=== PATIENT | female | born 1995 | race Hispanic/Latino ===

== ENCOUNTER 2020-08-08 22:00 | Emergency (ER) | payer SELFPAY ==
--- OUTSIDE RECORDS SUMMARY | 2020-08-08 22:02 | XMS REPORT | Continuity of Care Document ---
:1995 Author Organization [facility] t Address [address] [place] [address] Care Team Providers Name Role Phone Lab, Fam Pob I Attending Clinician Unavailable Problems Condition Condition Condition Status Onset Resolution Last Treating Co mments Source Name Details Category Date Date Treatment Clinician Date Lymphadeno Lymphadeno Diagnosis Active [facility] [place] [facility] - head and head and [facility] a neck neck [facility] Sinus Sinus Diagnosis Active [facility] congestion congestion [facility] Allergies, Adverse Reactions, Alerts This patient has no known allergies or adverse reactions. Medications This patient has no known medications. Procedures This patient has no known procedures. Encounters Start End Encounter Admission Attending Care Care Encounter Source Date/Time Date/Time Type Type Clinicians Facility Department ID 2019-11-13 2019-11-13 Laboratory Lab, [facility] [id number] 07:57:53 08:17:53 Only Fam Pob I [facility] [id number] [place] [id number] Professio [phone] [address] 2019-01-01 2019-01-01 [facility] [id number] 10:40:00 10:40:00 [facility] Results This patient has no known results.
[2020-08-09] MEDS ORDERED: ACETAMINOPHEN 500 MG TAB ONE (01:41)
--- NOTE | 2020-08-09 03:20 | ER ---
Nurse's Notes [facility] Name: Manisha Go Age: 24 yrs Sex: Female : 1995 Arrival Date: 08/08/2020 Time: 22:03 Bed 20 Private MD: Diagnosis: Spinal stenosis, cervical region;Radiculopathy, cervical region Presentation: 08/08 22:30 Chief complaint: Patient states: she is having pain to her right arm which started bb tonight she had disc replacements 2018 and has had some numbness to her right hand since then but yesterday it started feeling different. Coronavirus screen: At this time, the client does not indicate any symptoms associated with coronavirus-19. Ebola Screen: No symptoms or risks identified at this time. Initial Sepsis Screen: Does the patient meet any 2 criteria? No. Patient's initial sepsis screen is negative. Does the patient have a suspected source of infection? No. Patient's initial sepsis screen is negative. Risk Assessment: Do you want to hurt yourself or someone else? Patient reports no desire to harm self or others. Onset of symptoms was August 07, 2020. 22:30 Method Of Arrival: Ambulatory bb 22:30 Acuity: BARRY 4 bb Triage Assessment: 22:34 General: Appears in no apparent distress. Behavior is calm, cooperative. Pain: bb Complains of pain in right arm Pain currently is 8 out of 10 on a pain scale. Neuro: Level of Consciousness is awake, alert, obeys commands, Oriented to person, place, time, situation. Cardiovascular: Capillary refill < 3 seconds Patient's skin is warm and dry. Respiratory: Respiratory effort is even, unlabored. Derm: Skin is pink, warm \T\ dry. Musculoskeletal: Capillary refill < 3 seconds, Reports pain in right arm burning, numbness in right arm and hand. 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 - Social history:: Smoking status: Patient denies any tobacco usage or history of. Screenin/27 01:23 Abuse screen: Denies threats or abuse. Denies injuries from another. Nutritional jm8 screening: No deficits noted. Tuberculosis screening: No symptoms or risk factors identified. Fall Risk None identified. Vital Signs: 08/08 22:30 BP 126 / 77; Pulse 109; Resp 16 S; Temp 8.5(O); Pulse Ox 100% on R/A; Weight 108.86 kg bb (R); Height 5 ft. 4 in. (162.56 cm) (R); Pain 8/10; 22:38 Temp 98.5(O); mw2 08/09 00:36 BP 113 / 66; Pulse 78; Resp 16; Pulse Ox 99% ; mh5 08/08 22:30 Body Mass Index 41.20 (108.86 kg, 162.56 cm) ED Course: 08/08 22:03 Patient arrived in ED. bp1 22:33 Triage completed. 22:34 Arm band placed on Patient placed in waiting room, Patient notified of wait time. 08/09 00:17 Maikol Benitez MD is Attending Physician. [facility] 00:35 Patient has correct armband on for positive identification. Bed in low position. Call [facility] light in reach. Side rails up X 1. Adult w/ patient. Pillow given. Pulse ox on. NIBP on. 01:42 CT C Spine In Process Unspecified. EDMT 03:26 No provider procedures requiring assistance completed. Patient did not have IV access heavenly during this emergency room visit. Administered Medications: 01:23 Drug: Tylenol 1000 mg Route: PO; 8 03:03 Follow up: Response: No adverse reaction heavenly Outcome: 03:20 Discharge ordered by . Roel 03:27 Discharged to home ambulatory, with family. 8 03:27 Condition: good 03:27 Discharge instructions given to patient, family, Instructed on discharge instructions, follow up and referral plans. medication usage, Demonstrated understanding of instructions, follow-up care, medications. 03:27 Patient left the ED. jm8 Signatures: Dispatcher [employer] EDMS Karmen Madrid RN RN bb Martinez, Maria 5 Myesha Lozano 2 Pati Lerner bp1 Maikol Benitez MD MD 7 Malcaba, Amador, RN RN jm8
--- NOTE | 2020-08-09 03:20 | EDPHYS ---
Physician Documentation [facility] Name: Manisha Go Age: 24 yrs Sex: Female : 1995 Arrival Date: 08/08/2020 Time: 22:03 Bed 20 Private MD: ED Physician Maikol Benitez HPI: 08/09 02:10 This 24 yrs old Female presents to ER via Ambulatory with complaints of Arm mh7 Pain. 02:10 The patient or guardian complains of pain, that is acute. The complaints affect the mh7 right arm. Context: The problem was sustained at an unknown location, resulted from using the fist to strike, punching bag. 02:11 Onset: The symptoms/episode began/occurred 2 day(s) ago. Treatment prior to arrival mh7 includes: no previous treatment. Modifying factors: The symptoms are alleviated by nothing. the symptoms are aggravated by movement. Associated signs and symptoms: Pertinent negatives: decreased range of motion, deformity, erythema, fever, nausea, swelling, vomiting, warmth, weakness. Severity of symptoms: At their worst the symptoms were moderate, yesterday, in the emergency department the symptoms have improved, moderately. years ago due to disc herniation in neck. 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 - Social history:: Smoking status: Patient denies any tobacco usage or history of. ROS: 08/09 02:11 Constitutional: Negative for fever, chills, and weight loss, Eyes: Negative for injury, mh7 pain, redness, and discharge, ENT: Negative for injury, pain, and discharge, Cardiovascular: Negative for chest pain, palpitations, and edema, Respiratory: Negative for shortness of breath, cough, wheezing, and pleuritic chest pain, Abdomen/GI: Negative for abdominal pain, nausea, vomiting, diarrhea, and constipation, Back: Negative for injury and pain, : Negative for injury, bleeding, discharge, and swelling, Skin: Negative for injury, rash, and discoloration, Neuro: Negative for headache, weakness, numbness, tingling, and seizure, Psych: Negative for depression, anxiety, suicide ideation, homicidal ideation, and hallucinations, Allergy/Immunology: Negative for hives, rash, and allergies, Endocrine: Negative for neck swelling, polydipsia, polyuria, polyphagia, and marked weight changes, Hematologic/Lymphatic: Negative for swollen nodes, abnormal bleeding, and unusual bruising. Exam: 02:11 Constitutional: This is a well developed, well nourished patient who is awake, alert, mh7 and in no acute distress. Head/Face: Normocephalic, atraumatic. Eyes: Pupils equal round and reactive to light, extra-ocular motions intact. Lids and lashes normal. Conjunctiva and sclera are non-icteric and not injected. Cornea within normal limits. Periorbital areas with no swelling, redness, or edema. ENT: Nares patent. No nasal discharge, no septal abnormalities noted. Tympanic membranes are normal and external auditory canals are clear. Oropharynx with no redness, swelling, or masses, exudates, or evidence of obstruction, uvula midline. Mucous membranes moist. 02:11 Chest/axilla: Normal chest wall appearance and motion. Nontender with no deformity. No lesions are appreciated. Cardiovascular: Regular rate and rhythm with a normal S1 and S2. No gallops, murmurs, or rubs. Normal PMI, no JVD. No pulse deficits. Respiratory: Lungs have equal breath sounds bilaterally, clear to auscultation and percussion. No rales, rhonchi or wheezes noted. No increased work of breathing, no retractions or nasal flaring. Abdomen/GI: Soft, non-tender, with normal bowel sounds. No distension or tympany. No guarding or rebound. No evidence of tenderness throughout. Back: No spinal tenderness. No costovertebral tenderness. Full range of motion. Skin: Warm, dry with normal turgor. Normal color with no rashes, no lesions, and no evidence of cellulitis. MS/ Extremity: Pulses equal, no cyanosis. Neurovascular intact. Full, normal range of motion. Neuro: Awake and alert, GCS 15, oriented to person, place, time, and situation. Cranial nerves II-XII grossly intact. Motor strength 5/5 in all extremities. Sensory grossly intact. Cerebellar exam normal. Normal gait. Psych: Awake, alert, with orientation to person, place and time. Behavior, mood, and affect are within normal limits. 02:11 Neck: External neck: tenderness, that is mild, of the right mid cervical area and right trapezius, C-spine: appears grossly normal, Thyroid: appears normal, Trachea: is midline with no obvious abnormalities, ROM/movement: pain, that is mild, with rotation to the right, limited range of motion, is not appreciated, Meningeal signs: are not present, nuchal rigidity, is not appreciated, Lymph nodes: no appreciated lymphadenopathy. Vital Signs: 08/08 22:30 BP 126 / 77; Pulse 109; Resp 16 S; Temp 8.5(O); Pulse Ox 100% on R/A; Weight 108.86 kg bb (R); Height 5 ft. 4 in. (162.56 cm) (R); Pain 8/10; 22:38 Temp 98.5(O); mw2 08/09 00:36 BP 113 / 66; Pulse 78; Resp 16; Pulse Ox 99% ; mh5 08/08 22:30 Body Mass Index 41.20 (108.86 kg, 162.56 cm) bb MDM: 03:18 Differential diagnosis: contusion, tendonitis, Cervical Radiculopathy. Data reviewed: [facility] vital signs, nurses notes, radiologic studies, CT scan. Counseling: I had a detailed discussion with the patient and/or guardian regarding: the historical points, exam findings, and any diagnostic results supporting the discharge/admit diagnosis, radiology results, the need for outpatient follow up, to return to the emergency department if symptoms worsen or persist or if there are any questions or concerns that arise at home. Response to treatment: the patient's symptoms have markedly improved after treatment. 03:20 Patient medically screened. [facility] 08/09 01:13 Order name: CT C Spine [facility] Administered Medications: 01:23 Drug: Tylenol 1000 mg Route: PO; jm8 03:03 Follow up: Response: No adverse reaction jm8 Disposition: 08/09/20 03:20 Discharged to Home. Impression: Spinal stenosis, cervical region, Radiculopathy, cervical region. - Condition is Stable. - Discharge Instructions: Cervical Radiculopathy, [id number]. - Prescriptions for Ibuprofen 800 mg Oral Tablet - take 1 tablet by ORAL route every 8 hours As needed take with food; 15 tablet. Robaxin 500 mg Oral Tablet - take 1 tablet by ORAL route every 6 hours As needed; 20 tablet. - Medication Reconciliation Form, Thank You Letter, Antibiotic Education, Prescription Opioid Use form. - Follow up: Private Physician; When: 1 - 2 days; Reason: Worsening of condition, Recheck today's complaints, Continuance of care, Re-evaluation by your physician. - Problem is new. - Symptoms have improved. Signatures: Dispatcher [employer] EDMS Karmen Madrid RN RN bb Maikol Benitez MD MD mh7 Amador Cash RN RN jm8 Corrections: (The following items were deleted from the chart) 03:27 03:20 08/09/2020 03:20 Discharged to Home. Impression: Spinal stenosis, cervical jm8 region; Radiculopathy, cervical region. Condition is Stable. Forms are Medication Reconciliation Form, Thank You Letter, Antibiotic Education, Prescription Opioid Use. Follow up: Private Physician; When: 1 - 2 days; Reason: Worsening of condition, Recheck today's complaints, Continuance of care, Re-evaluation by your physician. Problem is new. Symptoms have improved. mh7
[2020-08-09 03:45] VITALS: TEMP 98.5
[2020-08-09 03:47] VITALS: BP 113/66; O2SAT 99
--- NOTE | 2020-08-10 13:04 | RAD REPORT ---
EXAM DESCRIPTION: CT - C Spine Wo Con - 08/09/2020 6:16 am CLINICAL HISTORY: 24 years, Female, RADICULOPATHY COMPARISON: None. TECHNIQUE: Multiple axial CT images through the cervical spine were obtained at 2 mm slice thickness at 2 mm interval reconstruction. In addition 2-D multiplanar reformats and the sagittal coronal plan e were performed and reviewed. This exam was performed according to our departmental dose-optimization protocol, which includes auto mated exposure control, adjustment of the mA and/or kV according to patient size and/or use of iterat woodrow reconstruction technique. FINDINGS: The alignment of the vertebral body heights are normal. There is findings suggesting conge nital spinal canal narrowing/stenosis. There is no evidence of fracture or subluxation. There is a st atus post discectomy and intervertebral disc fixation device at C5/C6 and C6/C7. Neural foramina demo nstrate to be unremarkable. The uncovertebral joints demonstrate to be normal. There is no prevertebr al soft tissue swelling. The visualized portions of the lung apices demonstrate to be unremarkable. S agittal coronal reformatted images demonstrate no subluxation or bony abnormalities. IMPRESSION: Status post discectomy and intervertebral disc fixation device at C5/C6 and C6/C7. 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 No evidence for fracture and/or subluxation. Electronically signed by: Kaveh Perera MD 08/09/2020 2:08 AM CDT Due to temporary technical issues with the PACS/Fluency reporting system, reports are being signed by the in house radiologist without review as a courtesy to ensure prompt reporting. The interpreting r adiologist is fully responsible for the content of the report.
== END 2020-08-09 03:27 | disposition home or self-care (01) ==
LOC: ER 22:00
DX: M54.12 Radiculopathy, cervical region (principal); M48.02 Spinal stenosis, cervical region
CPT/HCPCS: 72125; 99283

== ENCOUNTER 2021-12-21 08:26 | Emergency (ER) | payer OTHER, SELFPAY ==
--- OUTSIDE RECORDS SUMMARY | 2021-12-21 08:29 | XMS REPORT | Continuity of Care Document ---
:1995 Author Organization [facility] t Address [address] [place] [address] Care Team Providers Name Role Phone Frank Metz Primary Care Physician [phone] Sheila Chatterjee Attending Clinician Unavailable Lab, Adc Fam Pob I Attending Clinician Unavailable Hollie Manley Attending Clinician KELVIN KAUR Attending Clinician Unavailable Payers Payer Name Policy Type Policy Number Effective Date Expiration Date Peggy DANIELS O [id number] 2016 00:00:00 Problems Condition Condition Condition Status Onset Resolution Last Treating Co mments Source Name Details Category Date Date Treatment Clinician Date Lymphadeno Lymphadeno Diagnosis Active [facility] [place] head and head and - [facility] Sinus Sinus Diagnosis Active Common congestion congestion Sp ruddy [facility] Allergies, Adverse Reactions, Alerts Allergy Allergy Status Severity Reaction(s) Onset Inactive Treating Comm ents Source Name Type Date Date Clinician NO KNOWN Drug Active Univers ALLERGIE Class ity of [facility] Social History Social Habit Start Date Stop Date Quantity Comments Source [facility] to [facility]2 [facility] Smoking Status Start Date Stop Date Source Unknown if ever smoked [facility] y [facility] Medications Ordered Filled Start Stop Current Ordering Indication Dosage Frequency Signature Comments Components Source Medication Medication Date Date Medication? Clinician (SIG) Name Name USE 2 2021-02 No SPRAYS IN 0-18 EACH 00:00: NOSTRIL 00 ONCE DAILY USE 2 2021-02 No SPRAYS IN 0-18 EACH 00:00: NOSTRIL 00 ONCE DAILY No known No [facility] medications [facility] Vital Signs Vital Name Observation Time Observation Value Comments Source BP Systolic 2021-12-20 09:08:00 126 mm[Hg] BP Diastolic 2021-12-20 09:08:00 79 mm[Hg] Weight Measured 2021-12-20 09:08:00 216.80 pounds Height Measured 2021-12-20 09:08:00 64.00 inches Body Temperature 2021-12-20 09:08:00 97.30 degrees Heart Rate 2021-12-20 09:08:00 104.00 /min Respiratory Rate 2021-12-20 09:08:00 20.00 /min Respiratory Rate 2021-11-30 14:48:00 20.00 /min BP Systolic 2021-11-30 14:48:00 137 mm[Hg] BP Diastolic 2021-11-30 14:48:00 81 mm[Hg] Weight Measured 2021-11-30 14:48:00 220.80 pounds Height Measured 2021-11-30 14:48:00 64.00 inches Body Temperature 2021-11-30 14:48:00 98.10 degrees Heart Rate 2021-11-30 14:48:00 103.00 /min Procedures This patient has no known procedures. Plan of Care Planned Activity Planned Date Details Comments Source Goal Plan of Care Note [code = 36968-6] Goal Plan of Care Note [code = 49257-5] Goal Plan of Care Note [code = 70028-6] Goal Plan of Care Note [code = 10902-4] Goal Plan of Care Note [code = 89633-4] Goal Plan of Care Note [code = 41468-0] Goal Plan of Care Note [code = 71950-2] Goal Plan of Care Note [code = 48857-8] Goal Plan of Care Note [code = 99755-8] Goal Plan of Care Note [code = 81550-0] Goal Plan of Care Note [code = 06808-8] Encounters Start End Encounter Admission Attending Care Care Encounter Source Date/Time Date/Time Type Type Clinicians Facility Department ID 2021-11-30 Outpatient [facility] [id number] Common 15:41:00 Sheila [address] [facility] 2021-12-20 2021-12-20 Outpatient SFA [id number] [id number] Miguel A 09:10:00 09:10:00 [id number] F Carlos 2021-12-20 2021-12-20 Outpatient [id number] 00:00:00 00:00:00 Visit [id number] 2021-11-30 2021-11-30 Outpatient SFA SFA [id number] Miguel A 14:34:30 14:34:30 [id number] F Carlos 2021-11-30 2021-11-30 Outpatient [id number] 00:00:00 00:00:00 Visit [id number] 2019-11-13 2019-11-13 Laboratory Lab, [facility] Fam Pob I RUST [id number] Univers 07:57:53 08:17:53 Only [facility] [id number] ity of [place] [id number] Moustapha as Professio [phone] Mo dical [address] Office [facility] 2019-11-13 2019-11-13 Laboratory Lab, [facility] [id number] 07:57:53 08:17:53 Only Fam Pob I Health [id number] [place] [id number] Professio [phone] [address] 2019-11-13 2019-11-13 Outpatient R [facility] [id number] Univers 08:00:00 08:00:00 [id number] ity of [facility] 2019-11-13 2019-11-13 Outpatient R [facility] [id number] Univers 08:00:00 08:00:00 [facility] 2019-11-09 2019-11-09 Outpatient Sandra KAUR [facility] [id number] Univers 16:00:00 16:00:00 KELVIN [facility] 2019-01-01 2019-01-01 Outpatient Nancy Godinez [id number] Common 10:40:00 10:40:00 [facility] Results This patient has no known results.
[2021-12-21 09:24] LABS: Absolute Lymphocytes (CBC) 2.3 K/uL (0.7-4.9); Hematocrit 42.4 % (36.0-45.0); Lymphocytes % 32.2 % (15.3-44.8); MCV 81.7 fL (80-100); MPV 7.3 fL (7.6-11.3); RBC Red Blood Cell Count 5.19 M/uL (3.86-4.86)
--- NOTE | 2021-12-21 09:37 | RAD REPORT ---
EXAM DESCRIPTION: RAD - Chest Single View - 12/21/2021 9:22 am CLINICAL HISTORY: CHEST PAIN COMPARISON: None TECHNIQUE: AP portable chest image was obtained 12/21/2021 9:22 am . FINDINGS: Lungs are clear. Heart and vasculature are normal. No measurable pleural effusion and no p neumothorax. No acute bony abnormality seen. No acute aortic findings suspected. IMPRESSION: No acute cardiopulmonary process.
[2021-12-21 09:50] LABS: Potassium 3.9 mmol/L (3.5-5.1); Thyroid Stimulating Hormone 1.11 uIU/mL (0.360-3.740)
--- NOTE | 2021-12-21 10:06 | ER ---
Nurse's Notes [facility] Name: Manisha Go Age: 26 yrs Sex: Female : 1995 Arrival Date: 12/21/2021 Time: 08:27 Bed 20 Private MD: Diagnosis: Anxiety disorder, unspecified Presentation: 12/21 08:49 Chief complaint: Patient states: in the mornings I wake up with chest tightness and SOB jh5 but it goes away after a bit when I sit and deep breathe, I calm down. And at night I am getting very anxious and every noise makes me jump or look around like scared but this is coming and going the last 4 days. As the show card writer asked the patient if anything in her life has recently changed making her more overwhelmed or stressed she began to cry and told the show card writer she gets overwhelmed easily recently. Coronavirus screen: Vaccine status: Patient reports being unvaccinated. Client denies travel out of the [place] in the last 14 days. Ebola Screen: Patient negative for fever greater than or equal to 101.5 degrees Fahrenheit, and additional compatible Ebola Virus Disease symptoms Patient denies exposure to infectious person. Patient denies travel to an Ebola-affected area in the 21 days before illness onset. Initial Sepsis Screen: Does the patient meet any 2 criteria? No. Patient's initial sepsis screen is negative. Does the patient have a suspected source of infection? No. Patient's initial sepsis screen is negative. Risk Assessment: Do you want to hurt yourself or someone else? Patient reports no desire to harm self or others. Onset of symptoms was December 17, 2021. 08:49 Method Of Arrival: Ambulatory [facility] 08:49 Acuity: BARRY 3 5 Triage Assessment: 08:54 General: Appears in no apparent distress. uncomfortable, obese, well groomed, well jh5 developed, well nourished, Behavior is calm, cooperative, anxious, crying. Pain: Denies pain. Cardiovascular: Reports chest pain, shortness of breath. 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 Historical: - Allergies: 08:53 No Known Allergies; [facility] - Home Meds: 08:53 None [Active]; 5 - PMHx: 08:53 None; jh5 - PSHx: 08:54 2018 - C5-C7 herniated disc sx; [facility] 08:53 2018 - C5-C7 herniated disc sx; [facility] - Immunization history:: Adult Immunizations up to date. - Social history:: Smoking status: Patient denies any tobacco usage or history of. - Family history:: not pertinent. - Hospitalizations: : No recent hospitalization is reported. Screenin:00 Abuse screen: Denies threats or abuse. Denies injuries from another. Nutritional mb8 screening: No deficits noted. Tuberculosis screening: No symptoms or risk factors identified. Fall Risk None identified. Assessment: 09:00 Pain: Denies pain. Pain does not radiate. Pain began suddenly, pain came on suddenly mb8 but patient is currently pain free. Cardiovascular: Rhythm is sinus rhythm Chest pain is denied. 09:00 Respiratory: No deficits noted. Breath sounds are clear bilaterally. mb8 09:43 Reassessment: Patient and/or family updated on plan of care and expected duration. Pain mb8 level reassessed. Patient is alert, oriented x 3, equal unlabored respirations, skin warm/dry/pink. Vital Signs: 08:49 BP 142 / 85; Pulse 85; Resp 18; Temp 98.7; Pulse Ox 100% ; Weight 97.98 kg; Height [address] [facility] ft. 4 in. (162.56 cm); Pain 0/10; 09:42 BP 137 / 87; Pulse 84; Resp 20; Pulse Ox 100% on R/A; Pain 0/10; mb8 08:49 Body Mass Index 37.08 (97.98 kg, 162.56 cm) [facility] Vitals: 09:42 Cardiac Rhythm Assessment Sinus rhythm. mb8 ED Course: 08:27 Patient arrived in ED. as 08:44 Mohamud Eason, BRYAN is Primary Nurse. mb8 08:46 Mychal Gil MD is Attending Physician. rn 08:53 Triage completed. [facility] 08:54 Arm band placed on right wrist. [facility] 09:00 Patient has correct armband on for positive identification. Placed in gown. Bed in low mb8 position. Call light in reach. Side rails up X2. Client placed on continuous cardiac and pulse oximetry monitoring. NIBP monitoring applied. nurse monitoring on. 09:10 Inserted saline lock: 20 gauge in left antecubital area, using aseptic technique. Blood mb8 collected. Patient maintains SpO2 saturation greater than 95% on room air. 09:14 XRAY Chest (1 view) Sent. mb8 09:23 XRAY Chest (1 view) In Process Unspecified. EDMS 09:23 No provider procedures requiring assistance completed. mb8 10:17 IV discontinued, intact, bleeding controlled, No redness/swelling at site. Pressure mb8 dressing applied. Administered Medications: No medications were administered Medication: 09:23 VIS not applicable for this client. mb8 Outcome: 10:05 Discharge ordered by . rn 10:17 Discharged to home ambulatory. mb8 10:17 Condition: stable 10:17 Discharge instructions given to patient, Instructed on discharge instructions, follow up and referral plans. Demonstrated understanding of instructions, follow-up care. 10:17 Patient left the ED. mb8 Signatures: Dispatcher [employer] Marva Acosta Roman, MD MD rn Rees, Jessica RN RN jh5 Mohamud Eason RN RN mb8
--- NOTE | 2021-12-21 10:06 | EDPHYS ---
Physician Documentation [facility] Name: Manisha Go Age: 26 yrs Sex: Female : 1995 Arrival Date: 12/21/2021 Time: 08:27 Bed 20 Private MD: ED Physician Mychal Gil HPI: 12/21 10:01 This 26 yrs old Female presents to ER via Ambulatory with complaints of Chest rn Tightness, Shortness Of Breath. 10:02 The patient has shortness of breath at rest, during emotionally upset. Onset: The rn symptoms/episode began/occurred 1 month(s) ago. Duration: The symptoms are intermittent. The patient's shortness of breath is aggravated by nothing, is alleviated by rest. Associated signs and symptoms: Pertinent positives: chest pain, Pertinent negatives: fever, hemoptysis. Severity of symptoms: At their worst the symptoms were moderate in the emergency department the symptoms have improved. The patient has experienced similar episodes in the past. The patient has not recently seen a physician. Pt reports anxious at night, any noise wakes her up or keeps her up, palpitations and sob in AM, intermittent, goes away. Feels like anxiety but not sure so came for further evaluation. . 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 - Social history:: Smoking status: Patient denies any tobacco usage or history of. - Family history:: not pertinent. - Hospitalizations: : No recent hospitalization is reported. ROS: 10:02 Constitutional: Negative for fever, chills, and weight loss, Cardiovascular: Negative rn for palpitations, and edema, Respiratory: Negative for cough, wheezing, and pleuritic chest pain, Abdomen/GI: Negative for abdominal pain, nausea, vomiting, diarrhea, and constipation, Back: Negative for injury and pain, MS/Extremity: Negative for injury and deformity, Skin: Negative for injury, rash, and discoloration, Neuro: Negative for headache, weakness, numbness, tingling, and seizure. Exam: 10:02 Constitutional: This is a well developed, well nourished patient who is awake, alert, rn and in no acute distress. Head/Face: Normocephalic, atraumatic. Cardiovascular: Regular rate and rhythm. No pulse deficits. Respiratory: Clear bilateral breath sounds. No increased work of breathing, no retractions or nasal flaring. Abdomen/GI: Soft, non-tender Skin: Warm, dry MS/ Extremity: Pulses equal, no cyanosis. Neuro: Awake and alert, GCS 15 10:02 ECG was reviewed by the Attending Physician. rn Vital Signs: 08:49 BP 142 / 85; Pulse 85; Resp 18; Temp 98.7; Pulse Ox 100% ; Weight 97.98 kg; Height 5 5 ft. 4 in. (162.56 cm); Pain 0/10; 09:42 BP 137 / 87; Pulse 84; Resp 20; Pulse Ox 100% on R/A; Pain 0/10; mb8 08:49 Body Mass Index 37.08 (97.98 kg, 162.56 cm) 5 MDM: 08:46 Patient medically screened. rn 10:02 Differential diagnosis: Anxiety Reaction Pneumothorax hyperventilation. Data reviewed: rn vital signs, nurses notes, lab test result(s), EKG, radiologic studies, plain films. 10:05 Counseling: I had a detailed discussion with the patient and/or guardian regarding: the rn historical points, exam findings, and any diagnostic results supporting the discharge/admit diagnosis, lab results, radiology results, the need for outpatient follow up, to return to the emergency department if symptoms worsen or persist or if there are any questions or concerns that arise at home. Special discussion: Based on the patient's history, exam, and Dx evaluation, there is no indication for emergent intervention or inpatient Tx. It is understood by the patient/guardian that if the Sx's persist or worsen they need to return immediately for re-evaluation. I discussed with the patient/guardian in detail that at this point there is no indication for admission to the hospital. It is understood, however, that if the symptoms persist or worsen the patient needs to return immediately for re-evaluation. Based on the history and exam findings, there is no indication for further emergent testing or inpatient evaluation. I discussed with the patient/guardian the need to see the psychiatrist for further evaluation of the symptoms. 12/21 08:55 Order name: Basic Metabolic Panel; Complete Time: : rn 12/21 08:55 Order name: CBC with Diff; Complete Time: : rn 12/21 08:55 Order name: XRAY Chest (1 view); Complete Time: : rn 12/21 08:55 Order name: EKG; Complete Time: 08: rn 12/21 08:56 Order name: TSH; Complete Time: : rn 12/21 08:56 Order name: T4 Free; Complete Time: : rn 12/21 08:55 Order name: Cardiac monitoring; Complete Time: rn 12/21 08:55 Order name: EKG - Nurse/Tech; Complete Time: rn 12/21 08:55 Order name: IV Saline Lock; Complete Time: : rn 12/21 08:55 Order name: Labs collected and sent; Complete Time: rn 12/21 08:55 Order name: O2 Per Protocol; Complete Time: : rn 12/21 08:55 Order name: O2 Sat Monitoring; Complete Time: : rn EC:02 Rate is 94 beats/min. Rhythm is regular. QRS [place] is Normal. ND interval is normal. QRS rn interval is normal. QT interval is normal. No Q waves. T waves are Normal. No ST changes noted. Clinical impression: NSR w/ Non-specific ST/T Changes. Interpreted by me. Reviewed by me. Administered Medications: No medications were administered Disposition Summary: 12/21/21 10:05 Discharge Ordered Location: Home rn Problem: an ongoing problem rn Symptoms: have improved rn Condition: Stable rn Diagnosis - Anxiety disorder, unspecified rn Followup: rn - With: Private Physician - When: As needed - Reason: Recheck today's complaints, Re-evaluation by your physician Discharge Instructions: - Discharge Summary Sheet rn - Generalized Anxiety Disorder, Adult rn - Supporting Someone With Anxiety rn - Managing Anxiety, Adult rn Forms: - Medication Reconciliation Form rn - Thank You Letter rn - Antibiotic rn psychiatric - Prescription Opioid Use rn Signatures: Dispatcher [employer] Mychal Galicia MD MD rn Rees, Jessica, RN RN jh5
[2021-12-21 10:53] VITALS: TEMP 98.7; O2SAT 100
[2021-12-21 10:59] VITALS: BP 137/87
--- NOTE | 2021-12-21 13:54 | EKG ---
Test Date: 2021-12-21 Test Time: 09:18:18 [employer] Operations Manager: TAHMINA MEASUREMENT RESULTS: Intervals: Rate: 94 NC: 170 QRSD: 76 QT: 342 QTc: 427 [place]: P: 61 NC: 170 QRS: 65 T: 33 INTERPRETIVE STATEMENTS: Normal sinus rhythm Low voltage QRS Cannot rule out Anterior infarct, age undetermined Abnormal ECG No previous ECG available for comparison Electronically Signed On 12-21-21 13:53:42 [employer] JUMP[employer] by Easton Jacobson
== END 2021-12-21 10:17 | disposition home or self-care (01) ==
LOC: ER 08:26
DX: F41.9 Anxiety disorder, unspecified (principal)
CPT/HCPCS: 36415; 71045; 80048; 84439; 84443; 85025; 93005; 99284

== ENCOUNTER 2024-02-26 10:20 | Emergency (ER) | payer SELFPAY ==
--- OUTSIDE RECORDS SUMMARY | 2024-02-26 10:23 | XMS REPORT | Continuity of Care Document ---
Author Name Unknown Address [address] [facility] [address] [place] [address] [facility] Address [address] [facility] [address] [place] [address] Care Team Providers Care Manager It Security Name Role Phone Frank Metz Primary Care Physician Sheila Chatterjee Attending Clinician Unavailable Ciara Pelletier Attending Clinician + [phone] CIARA FITZPATRICK Attending Clinician Unavail Dean Montes Attending Clinician [phone] Unknown, Attending Attending Clinician Unavailab DEAN Bloom Attending Clinician Unavailable GC_GCBZW_Kacarrie_S Attending Clinician Unavaila sanjana Kerr MD, Milagro Green N Attending Clinician [phone] Crystal Presley MD Attending Clinician [phone] CRYSTAL PRESLEY Attending Clinician Unavaillenard allan Transplant, Kidney Attending Clinician Unavailab daniele Gamez, c Attending Clinician Unavailable Nathalie Pickering Attending Clinician Unavailkrysta Jovel RD LD Jose G SEGUDNO Attending Clinician Unav ailable Pob, Adc Lab Main Attending Clinician Unavailkrysta e 1, Adc Lab Attending Clinician Unavailable Rambo Obando MD Attending Clinician [phone] RAMBO OBANDO Attending Clinician Unavailkrysta e Doctor Unassigned, [place] Attending Clinician U navailable RIDSOPHIE LUO Attending Clinician Unavaila ble [place] Sophie GALLARDO Attending Clinician [phone] Lab, Adc Fam Pob I Attending Clinician Unavailab Holile Hendrix Attending Clinician KELVIN KAUR Attending Clinician Unavailable GC_GCBZW_Kadiyala_S Admitting Clinician Unavaila ble Payers Payer Name Policy Type Policy Number Effective Date Expirati on Date Source [facility] [id number] 2016 00:00:00 Problems Condition Name Condition Details Condition Category Status Onset Date Resolution Date Last Treatment Date Treating Clinician Comments Source No known active problems No known active problems Disease [facility] Lymphadeno pedrito of head and neck Lymphadeno pedrito of head and neck Diagnosis Active [facility] Sinus congestion Sinus congestion Diagnosis Active [facility] Allergies, Adverse Reactions, Alerts Allergy Name Allergy Type Status Severity Reaction(s) Onset Date Inactive Date Treating Clinician Comments Source NO KNOWN ALLERGIE S Drug Class Active [facility] Social History Social Habit Start Date Stop Date Quantity Comments Source Gender identity [facility] Alcoholic beverage intake 2023-08-29 00:00:00 2023-08-29 00:00:00 Lifetime non-drinker (finding) [facility] Tobacco use and exposure 2022-08-23 00:00:00 2022-08-23 00:00:00 Smokeless tobacco non-user [facility] Alcohol intake 2022-08-23 00:00:00 2022-08-23 00:00:00 Lifetime non-drinker (finding) [facility] History of Social function 2022-08-23 00:00:00 2022-08-23 00:00:00 [facility] Exposure to SARS-CoV-2 (event) 2021-12-19 00:00:00 2021-12-29 19:00:00 Not sure [facility] Sex assigned at 1995 00:00:00 1995 00:00:00 [facility] Smoking Status Start Date Stop Date Source Tobacco smoking consumption unknown [facility] Never smoked tobacco [facility] Medications Ordered Medication Name Filled Medication Name Start Date Stop Date Current Medication? Ordering Clinician Indication Dosage Frequency Signature (SIG) Comments Components Source mupirocin 2 % ointment 08-28 00:00: 00 Yes [id number] Apply to area(s) 3 (three) times daily. [facility] sulfamethox azole-trime thoprim (BACTRIM DS) 800-160 mg per tablet 08-28 00:00: 00 Yes [id number] Take 1 tab Po BID x 7 days [facility] iopamidol (ISOVUE 370-500 mL) injection 100 mL 08-23 15:45: 00 08-23 14:35 :00 No [id number] 100mL 100 mL, Intravenou s, ONCE, 1 dose, On Mon08/23/22 at 1045, Routine [facility] No known medications 2021-02 19:06: 34 No No known medication s [facility] USE 2 SPRAYS IN EACH NOSTRIL ONCE DAILY 2021-02 00:00: 00 No USE 2 SPRAYS IN EACH NOSTRIL ONCE DAILY 2021-02 00:00: 00 No No known medications 11-05 09:34: 05 No No known medication s [facility] No known medications No Un maldonado [facility] Vital Signs Vital Name Observation Time Observation Value Comments S saravanan Systolic blood pressure 2023-08-30 01:44:00 138 mm[Hg] [facility] Diastolic blood pressure 2023-08-30 01:44:00 89 mm[Hg] [facility] Heart rate 2023-08-30 01:44:00 110 /min [facility] Body temperature 2023-08-30 01:44:00 36.72 Porsha [facility] Respiratory rate 2023-08-30 01:44:00 20 /min [facility] Body weight 2023-08-30 01:44:00 97.552 kg [facility] BMI 2023-08-30 01:44:00 36.92 kg/m2 [facility] Oxygen saturation in Arterial blood by Pulse oximetry 2023-08-30 01:44:00 99 /min [facility] Systolic blood pressure 2022-08-23 18:44:00 122 mm[Hg] [facility] Diastolic blood pressure 2022-08-23 18:44:00 82 mm[Hg] [facility] Heart rate 2022-08-23 18:44:00 79 /min [facility] Body temperature 2022-08-23 18:44:00 36.89 Porsha [facility] Body height 2022-08-23 18:44:00 162.6 cm [facility] Body weight 2022-08-23 18:44:00 79.606 kg [facility] BMI 2022-08-23 18:44:00 30.12 kg/m2 [facility] Systolic blood pressure 2022-08-23 15:58:00 133 mm[Hg] [facility] Diastolic blood pressure 2022-08-23 15:58:00 77 mm[Hg] [facility] Heart rate 2022-08-23 15:58:00 80 /min [facility] Oxygen saturation in Arterial blood by Pulse oximetry 2022-08-23 15:58:00 100 /min [facility] Body temperature 2022-08-23 15:57:00 36.89 Porsha [facility] Respiratory rate 2022-08-23 15:57:00 16 /min [facility] Body height 2022-08-23 15:57:00 162.6 cm [facility] Body weight 2022-08-23 15:57:00 79.606 kg [facility] BMI 2022-08-23 15:57:00 30.12 kg/m2 [facility] Systolic blood pressure 2021-12-30 01:05:00 139 mm[Hg] [facility] Diastolic blood pressure 2021-12-30 01:05:00 80 mm[Hg] [facility] Heart rate 2021-12-30 01:05:00 106 /min [facility] Body temperature 2021-12-30 01:05:00 36.67 Porsha [facility] Respiratory rate 2021-12-30 01:05:00 18 /min [facility] Oxygen saturation in Arterial blood by Pulse oximetry 2021-12-30 01:05:00 99 /min [facility] BP Systolic 2021-12-20 09:08:00 126 mm[Hg] BP [...] Heart Rate 2021-11-30 14:48:00 103.00 /min Procedures Procedure Date / Time Performed Performing Clinician Source EXTRA TUBE DK. KAUR 2023-11-02 18:10:00 Carlyn Fitzpatrick [facility] CBC WITH DIFF 2022-07-18 16:01:00 Crystal Presley [facility] GLYCOSYLATED HEMOGLOBIN (A1C) 2022-07-18 16:01:00 Crystal Presley [facility] URINE DRUG (IMMUNOASSAY) - COMPREHENSIVE DRUG SCREEN 2022-07-18 15:59:00 Crystal Presley [facility] URINALYSIS 2022-07-18 15:59:00 Crystal Presley U [facility] PROTEIN CREAT RATIO URINE RANDOM 2022-07-18 15:59:00 Crystal Presley [facility] BILI UNCONJUGATED/BILI CONJUG 2022-07-18 15:41:00 Crystal Presley [facility] TEST, SERUM 2022-07-18 15:41:00 Faisal Presley [facility] COMP. METABOLIC PANEL (49806) 2022-07-18 15:41:00 Crystal Presley [facility] LIPID PANEL (50574)(TOTAL CHOLESTEROL, TRIGLYCERIDES, HDL) 2022-07-18 15:41:00 Crystal Presley [facility] ASSIGNMENT OF BENEFITS 2022-07-18 15:21:03 Docto r Unassigned, [place] [facility] TRANSPLANT/EXT PROVIDER MISC 2022-07-08 05:01:00 Doctor Unassigned, [place] [facility] NOTICE OF PRIVACY PRACTICES 2021-12-30 00:45:25 Doctor Unassigned, [place] [facility] CONSENT/REFUSAL FOR DIAGNOSIS AND TREATMENT 2021-12-30 00:44:59 Doctor Unassigned, [place] [facility] Plan of Care Planned Activity Planned Date Details Comments Source Goal Plan of Care Note [code = 03255-9] Goal Plan of Care Note [code = 44978-9] Goal Plan of Care Note [code = 32394-7] Goal Plan of Care Note [code = 31526-7] Goal Plan of Care Note [code = 62874-6] Goal Plan of Care Note [code = 05495-0] Goal Plan of Care Note [code = 82914-1] Goal Plan of Care Note [code = 08000-1] Goal Plan of Care Note [code = 38689-0] Goal Plan of Care Note [code = 18882-8] Goal Plan of Care Note [code = 53193-5] Encounters Start Date/Time End Date/Time Encounter Type Admission Type Attending [facility] Care Department Encounter ID Source 2021-11-30 15:41:00 Outpatient Sheila Chatterjee [facility] [id number] [facility] 2023-11-02 13:04:00 2023-11-02 23:59:00 Hospital Encounter Ciara Fitzpatrick [facility] .114 350.1.13.10 4.2.7.2.686 [id number] [facility] 2023-11-02 00:00:00 2023-11-02 23:59:00 Outpatient CIARA NAQVI [facility] [id number] [facility] 2023-08-29 20:45:00 2023-08-29 21:00:00 Urgent Care Dean Thompson Unknown, Attending [facility] .114 350.1.13.10 4.2.7.2.686 [id number] [facility] 2023-08-29 20:45:00 2023-08-29 20:45:00 Outpatient DEAN REED [facility] [id number] [facility] 2022-12-14 00:00:00 2022-12-14 00:00:00 Outpatient GC_GCBZW_Ka diyala_S [facility] [id number] [facility] 2022-08-26 00:00:00 2022-08-26 00:00:00 Telephone Milagro Couch do [facility] 114 350.1.13.10 4.2.7.2.686 [id number] [facility] 2022-08-26 00:00:00 2022-08-26 00:00:00 Telephone Milagro Couch do [facility] .114 350.1.13.10 4.2.7.2.686 [id number] [facility] 2022-08-23 08:10:13 2022-08-23 23:59:00 Hospital Encounter SakinaAubreyRojas A [facility] 1.840.114 350.1.13.10 4.2.7.2.686 [id number] [facility] 2022-08-23 12:00:00 2022-08-23 12:00:00 Outpatient R SAKINAAUBREY PATTONMAD [facility] [id number] [facility] 2022-08-23 11:00:00 2022-08-23 11:45:00 Office Visit Transplant, Kidney SakinaCrystal patel [facility] 1..114 350.1.13.10 4.2.7.2.686 [id number] [facility] 2022-08-23 10:00:00 2022-08-23 10:40:00 Office Visit Milagro Couch do, Muhammad [facility] 1..114 350.1.13.10 4.2.7.2.686 [id number] [facility] 2022-08-23 09:45:00 2022-08-23 10:00:00 Sales And Distribution Clerk [facility] Rojas A [facility] .0.114 350.1.13.10 4.2.7.2.686 [id number] [facility] 2022-08-23 00:00:00 2022-08-23 00:00:00 Case Management Nathalie Pickering [facility] 1..114 350.1.13.10 4.2.7.2.686 [id number] [facility] 2022-08-23 00:00:00 2022-08-23 00:00:00 Telephone Milagro Couch do [facility] MULTISPEC IALTY [facility] 1.0.114 350.1.13.10 4.2.7.2.686 [id number] [facility] 2022-08-23 00:00:00 2022-08-23 00:00:00 Case Management Jose G Jovel [facility]AY [facility] 1..114 350.1.13.10 4.2.7.2.686 [id number] [facility] 2022-07-21 08:30:00 2022-07-21 08:45:00 Sales And Distribution Clerk Visit Pob, Adc Lab Main Crystal Presley [facility] 1..114 350.1.13.10 4.2.7.2.686 [id number] [facility] 2022-07-21 08:30:00 2022-07-21 08:30:00 Outpatient R CRYSTAL PRESLEY [facility] [id number] [facility] 2022-07-21 00:00:00 2022-07-21 00:00:00 Telephone Crystal Presley [facility] IALTY [facility] 1..114 350.1.13.10 4.2.7.2.686 [id number] [facility] 2022-07-21 00:00:00 2022-07-21 00:00:00 Telephone Transplant, Kidney [facility]AY [facility] 1..114 350.1.13.10 4.2.7.2.686 [id number] [facility] 2022-07-18 10:15:00 2022-07-18 10:30:00 Sales And Distribution Clerk Visit 1, Adc Rambo Ayala [facility] 1.2.840.114 350.1.13.10 4.2.7.2.686 [id number] [facility] 2022-07-18 10:15:00 2022-07-18 10:15:00 Outpatient RAMBO BOX [facility] [id number] [facility] 2022-07-18 00:00:00 2022-07-18 00:00:00 Orders Only Doctor Unassigned, [place] [facility] 1.2.840.114 350.1.13.10 4.2.7.2.686 [id number] [facility] 2022-07-15 00:00:00 2022-07-15 00:00:00 Telephone Crystal Presley [facility] 1.2.840.114 350.1.13.10 4.2.7.2.686 [id number] [facility] 2022-07-08 00:00:00 2022-07-08 00:00:00 Orders Only Doctor Unassigned, [place] [facility] 1.2.840.114 350.1.13.10 4.2.7.2.686 [id number] [facility] 2022-06-14 13:37:00 2022-06-14 23:59:00 Hospital Encounter SakinaCrystal britton [facility] 1.2.840.114 350.1.13.10 4.2.7.2.686 [id number] [facility] 2022-06-14 00:00:00 2022-06-14 23:59:00 Outpatient R CRYSTAL PRESLEY [facility] ACO [id number] [facility] 2022-06-13 00:00:00 2022-06-13 00:00:00 Telephone Crystal Presley [facility] MULTISPEC IALTY [facility] 1.2.840.114 350.1.13.10 4.2.7.2.686 [id number] [facility] 2022-05-31 00:00:00 2022-05-31 00:00:00 Telephone Milagro Couch do [facility] 1.2.840.114 350.1.13.10 4.2.7.2.686 [id number] [facility] 2021-12-29 19:07:00 2021-12-29 20:12:00 Emergency X [facility] ERT [id number] [facility] 2021-12-29 19:07:00 2021-12-29 20:12:00 [facility] 1.2.840.114 350.1.13.10 4.2.7.2.686 [id number] [facility] 2021-12-29 00:00:00 2021-12-29 00:00:00 Orders Only Doctor Unassigned, [place] [facility] 1.2.840.114 350.1.13.10 4.2.7.2.686 [id number] [facility] 2021-12-20 09:10:00 2021-12-20 09:10:[address] [facility] [id number] Miguel A Gonzalez 2021-12-20 00:00:00 2021-12-20 00:00:00 Outpatient Visit [id number] 2021-11-30 14:34:30 2021-11-30 14:34:[address] [facility] [id number] Miguel A Gonzalez 2021-11-30 00:00:00 2021-11-30 00:00:00 Outpatient Visit [id number] 2019-11-13 07:57:53 2019-11-13 08:17:53 Laboratory Only [facility] 1.2.840.114 350.1.13.10 4.2.7.2.686 [id number] 2019-11-13 07:57:53 2019-11-13 08:17:53 Laboratory Only Lab, [facility] Fam Pob I Hollie Galvan [facility] 1.2.840.114 350.1.13.10 4.2.7.2.686 [id number] [facility] 2019-11-13 08:00:00 2019-11-13 08:00:00 Outpatient R [facility] [id number] [facility] 2019-11-13 08:00:00 2019-11-13 08:00:00 Outpatient R [facility] [id number] [facility] 2019-11-09 16:00:00 2019-11-09 16:00:00 Outpatient R KELVIN KAUR [facility] [id number] [facility] 2019-01-01 10:40:00 2019-01-01 10:40:00 Outpatient [facility] [facility] [id number] [facility] Results Test Description Test Time Test Comments Results Result Co mments Source [facility], [id number] 17:19:14* Test Item Value Reference Range Interpretation Comme nts PREG SERUM (test code = 2133549015) Negative LUKASZ (test code = LUKASZ) Less than 10 IU/L. ?If low titer or ectopic is suspected, resubmit specimen in 48-72 hours. [facility] MET[facility]OLIC PANEL (17529)2022-07-18 17:08:51* Test Item Value Reference Range Interpretation Comme nts NA (test code = 4191090570) 136 mmol/L 135-145 K (test code = 9943722056) 4.8 mmol/L 3.5-5.0 CL (test code = 4094486386) 104 mmol/L 98-108 CO2 TOTAL (test code = 5216324495) 22 mmol/L 23-31 L AGAP (test code = 5078028136) 10 2-16 BUN (test code = 2344965082) 17 mg/dL 7-23 GLUCOSE (test code = 2888814187) 80 mg/dL 70-110 CREATININE (test code = 2826477403) 0.62 mg/dL 0.50-1.04 TOTAL BILI (test code = 1903965667) 1.4 mg/dL 0.1-1.1 H CALCIUM (test code = 5793075039) 9.1 mg/dL 8.6-10.6 T PROTEIN (test code = 4895995095) 7.8 g/dL 6.3-8.2 ALBUMIN (test code = 7377620450) 4.5 g/dL 3.5-5.0 ALK PHOS (test code = 6206479601) 58 U/L 34-122 ALTv (test code = 1742-6) 22 U/L 5-35 AST(SGOT) (test code = 2859397642) 32 U/L 13-40 eGFR (test code = 8312133825) 116.4 mL/min/1.73m2 LUKASZ (test code = LUKASZ) Association of Glomerular Filtration Rate (GFR) and Staging of Kidney Disease* + --+ --+ ------+| GFR (mL/min/1.73 m2) ?| With Kidney Damage ?| ?Without Kidney Damage+ --------+ --------+ +| ?>90 ?| ?Stage one ?| ? Normal ?+ ---+ ---+ -------+| ?60-89 ?| ?Stage two ?| ? Decreased GFR ? + --+ --+ ------+| ?30-59 ?| ?Stage three ?| ? Stage three ? + --+ --+ ------+| ?15-29 ?| ?Stage four ? | ? Stage four ?+ ---+ ---+ -------+| ?<15 (or dialysis) ? ?| ?Stage five ? | ? Stage five ?+ ---+ ---+ -------+ *Each stage assumes the associated GFR level has been in effect for at least three months. ?Stages 1 to 5, with or without kidney disease, indicate chronic kidney disease. Notes: Determination of stages one and two (with eGFR >59mL/min/1.73 m2) requires estimation of kidney damage for at least three months as defined by structural or functional abnormalities of the kidney, manifested by either:Pathological abnormalities or Markers of kidney damage (including abnormalities in the composition of the blood or urine or abnormalities in imaging tests). Lab Interpretation (test code = 89941-7) Abnormal [facility] (89425)(TOTAL CHOLESTEROL, TRIGLYCERIDES, HDL)2022-07-18 17:08:51* Test Item Value Reference Range Interpretation Comme nts CHOL (test code = 2768908790) 158 mg/dL 120-200 HDL (test code = 7626722553) 44 mg/dL >=50 L HDLC RATIO (test code = 3890117939) 3.6 <=4.5 TRIG (test code = 4854818535) 61 mg/dL 30-170 LDL CHOL (test code = 20693-4) 102 mg/dL <=160 VLDL (test code = 6329071331) 12 mg/dL 5-60 Lab Interpretation (test cod e = 60053-3) Abnormal [facility] UNCONJUGATED/BILI [id number] 17:08:09* Test Item Value Reference Range Interpretation Comme nts BILI CONJ (test code = 9279859624) 0.0 mg/dL 0.0-0.3 BILI UNCON (test code = 5327913095) 1.1 mg/dL 0.1-1.1 Lab Interpretation (test cod e = 20787-7) Normal [facility] WITH [id number] 16:24:00* Test Item Value Reference Range Interpretation Comme nts WBC (test code = 6690-2) 7.37 See_Comment [Automated messa ge] The system which generated this result transmitted reference range: 4.30 - 11.10 10*3/?L. The reference range was not used to interpret this result as normal/abnormal. RBC (test code = 789-8) 4.68 See_Comment [Automated [employer] ge] The system which generated this result transmitted reference range: 3.93 - 5.25 10*6/?L. The reference range was not used to interpret this result as normal/abnormal. HGB (test code = 718-7) 13.3 g/dL 11.6-15.0 HCT (test code = 4544-3) 40.4 % 35.7-45.2 MCV (test code = 787-2) 86.3 fL 80.6-95.5 MCH (test code = 785-6) 28.4 pg 25.9-32.8 MCHC (test code = 786-4) 32.9 g/dL 31.6-35.1 RDW-SD (test code = 01301-5) 42.5 fL 39.0-49.9 RDW-CV (test code = 788-0) 13.6 % 12.0-15.5 PLT (test code = 777-3) 343 See_Comment [Automated [employer]] The system which generated this result transmitted reference range: 166 - 358 10*3/?L. The reference range was not used to interpret this result as normal/abnormal. MPV (test code = 88971-0) 10.4 fL 9.5-12.9 NRBC/100 WBC (test code = 5480174281) 0.0 See_Comment [Automated [employer] ssage] The system which generated this result transmitted reference range: 0.0 - 10.0 /100 WBCs. The reference range was not used to interpret this result as normal/abnormal. NRBC x10^3 (test code = 6306778723) See_Comment [Automated [employer]app ssage] The system which generated this result transmitted reference range: 10*3/?L. The reference range was not used to interpret this result as normal/abnormal. GRAN MAT (NEUT) % (test code = 770-8) 60.2 % IMM GRAN % (test code = 0905512037) 0.30 % LYMPH % (test code = 736-9) 31.9 % MONO % (test code = 5905-5) 5.7 % EOS % (test code = 713-8) 1.2 % BASO % (test code = 706-2) 0.7 % GRAN MAT x10^3(ANC) (test code = 9488573542) 4.44 10*3/uL 1.88-7.09 IMM GRAN x10^3 (test code = 5500850917) 0.00-0.06 LYMPH x10^3 (test code = 731-0) 2.35 10*3/uL 1.32-3.29 MONO x10^3 (test code = 742-7) 0.42 10*3/uL 0.33-0.92 EOS x10^3 (test code = 711-2) 0.09 10*3/uL 0.03-0.39 BASO x10^3 (test code = 704-7) 0.05 10*3/uL 0.01-0.07 [facility]"
[2024-02-26 11:03] LABS: Absolute Basophils 0.1 K/uL (0-0.5); Absolute Lymphocytes (CBC) 2.1 K/uL (0.7-4.9); Absolute Monocytes 0.4 K/uL (0.1-1.3); Absolute Neutrophil 4.6 K/uL (1.8-8.0); Basophils % 0.7 % (0-1.3); Eosinophils % 0.7 % (0-4.4); Hematocrit 38.2 % (36.0-45.0); Hemoglobin 12.7 g/dL (12.0-15.0); Lymphocytes % 28.9 % (15.3-44.8); MCHC 33.4 g/dL (32.0-36.0); MCV 80.8 fL (80-100); MPV 7.8 fL (7.6-11.3); Monocytes % 5.8 % (3.3-12.3); Neutrophils % 63.9 % (41.7-73.7); Platelets 407 thou/uL (152-406); RBC Red Blood Cell Count 4.72 M/uL (3.86-4.86); Red Cell Distribution Width 15.7 % (12.1-15.2)
[2024-02-26 11:08] LABS: Specific Gravity 1.011 (1.005-1.030)
[2024-02-26 11:10] LABS: Specific Gravity 1.011 (1.005-1.030); Sqamous Epithelial <5 /HPF (None Seen); Urine Bacteria None Seen /HPF (<20); Urine Bilirubin NEGATIVE (Negative); Urine Blood Negative (Negative); Urine Clarity Clear (Clear); Urine Color Colorless (Yellow); Urine Culture Reflex Order NOT NEEDED; Urine Glucose NEGATIVE (Negative); Urine Ketones NEGATIVE (Negative); Urine Microscopic Reflex YN ORDER UMIC; Urine Nitrite NEGATIVE (Negative); Urine Protein NEGATIVE (Negative); Urine RBC <5 /HPF (None Seen); Urine Urobilinogen Normal (Normal); Urine WBC None Seen /HPF (<5); Urine pH 6.5 (5.0-7.0)
[2024-02-26] MEDS ORDERED: FAMOTIDINE 20 MG/2 ML VIAL IV ONE (11:10)
[2024-02-26] MEDS ORDERED: MAGNES/ALUMIN/SIMET 30ML UCUP ONE (11:10)
[2024-02-26] MEDS ORDERED: LIDOCAINE VISCOUS 2% 10ML ORAL SOLN ONE (11:10)
[2024-02-26 11:20] LABS: Albumin 3.7 g/dL (3.4-5.0); Albumin/Globulin Ratio 0.8 (1.1-1.8); Anion Gap 8.6 mEq/L (5.0-15.0); Bilirubin Total 0.6 mg/dL (0.2-1.0); Globulin 4.5 g/dL (2.3-3.5); Potassium 3.6 mEq/L (3.5-5.1); Protein, Total 8.2 g/dL (6.4-8.2)
--- NOTE | 2024-02-26 11:46 | RAD REPORT ---
EXAM: Right upper quadrant ultrasound. CLINICAL HISTORY: Abdominal pain COMPARISON: None FINDINGS: A gallstone is not seen. Gallbladder wall not thickened. Biliary tree normal caliber IMPRESSION: No significant abnormalities displayed
--- NOTE | 2024-02-26 12:03 | ER ---
Nurse's Notes [facility] Name: Manisha Go Age: 28 yrs Sex: Female : 1995 Arrival Date: 02/26/2024 Time: 10:20 Bed 17 Private MD: Diagnosis: Gastro-esophageal reflux disease without esophagitis Presentation: 02/25 10:31 Chief complaint: Patient states: burning mid abd pain X 2-3 days. iw 10:31 Coronavirus screen: At this time, the client does not indicate any symptoms associated iw with coronavirus-19. Ebola Screen: No symptoms or risks identified at this time. Initial Sepsis Screen: Does the patient meet any 2 criteria? No. Patient's initial sepsis screen is negative. Does the patient have a suspected source of infection? No. Patient's initial sepsis screen is negative. Risk Assessment: Do you want to hurt yourself or someone else? Patient reports no desire to harm self or others. Onset of symptoms was February 23, 2024. 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 - Infectious Disease History:: Denies. - Social history:: Smoking status: Patient denies any tobacco usage or history of. - Family history:: not pertinent. - Hospitalizations: : No recent hospitalization is reported. Screenin:27 [facility] ED Fall Risk Assessment (Adult) History of falling in the last 3 months, ld1 including since admission No falls in past 3 months (0 pts) Confusion or Disorientation No (0 pts) Intoxicated or Sedated No (0 pts) Impaired Gait No (0 pts) Mobility Assist Device Used No (0 pt) Altered Elimination No (0 pt) Score/Fall Risk Level 0 - 2 = Low Risk Oriented to surroundings, Maintained a safe environment, Educated pt \T\ family on fall prevention, incl call for assistance when getting out of bed, Assessed \T\ reinforced patient's understanding of fall precautions, Provided non-skid footwear, Hourly rounding (assess needs \T\ fall precautionary measures) done, Used ambulatory aids as needed (educated on \T\ assisted with), Used gait belt as appropriate. Abuse screen: Denies threats or abuse. Denies injuries from another. Nutritional screening: No deficits noted. Tuberculosis screening: No symptoms or risk factors identified. Assessment: 11:27 General: Appears in no apparent distress. comfortable, Behavior is calm, cooperative, ld1 appropriate for age. Pain: Complains of pain in abdomen Pain does not radiate. Pain currently is 7 out of 10 on a pain scale. Quality of pain is described as burning, Pain began suddenly, Is continuous. Neuro: Level of Consciousness is awake, alert, obeys commands, Oriented to person, place, time, situation. Cardiovascular: Capillary refill < 3 seconds Patient's skin is warm and dry. Rhythm is sinus rhythm. Cardiovascular: Reports chest pain. Respiratory: Airway is patent Respiratory effort is even, unlabored. GI: Abdomen is round non-distended. : No signs and/or symptoms were reported regarding the genitourinary system. EENT: No signs and/or symptoms were reported regarding the EENT system. Derm: No signs and/or symptoms reported regarding the dermatologic system. Musculoskeletal: No signs and/or symptoms reported regarding the musculoskeletal system. 12:20 Reassessment: Patient appears in no apparent distress at this time. No changes from ld1 previously documented assessment. Patient and/or family updated on plan of care and expected duration. Pain level reassessed. Patient is alert, oriented x 3, equal unlabored respirations, skin warm/dry/pink. Vital Signs: 10:31 BP 141 / 96; Pulse 80; Resp 16; Temp 98.1; Pulse Ox 100% ; Weight 95.71 kg; Height 5 iw ft. 4 in. ; 10:31 Body Mass Index 36.22 (95.71 kg, 162.56 cm) ED Course: 10:22 Patient arrived in ED. ra3 10:22 Mychal Gil MD is Attending Physician. rn 10:32 Triage completed. iw 10:53 CBC with Diff Sent. bc6 10:53 CMP Sent. bc6 10:53 Lipase Sent. bc6 10:53 Test, Urine Sent. bc6 10:53 Urinalysis w/ reflexes Sent. bc6 10:53 Initial lab(s) drawn, by ED staff, sent to lab. Urine collected: clean catch specimen, bc6 clear. Inserted saline lock: 20 gauge in right antecubital area, using aseptic technique. Blood collected. Flushed with 10 mL NS. 11:02 Abdomen Limited In Process Unspecified. EDMS 11:03 Kristal Fontana, RN is Primary Nurse. ld1 11:27 No provider procedures requiring assistance completed. ld1 11:27 Patient has correct armband on for positive identification. Placed in gown. Bed in low ld1 position. Call light in reach. Side rails up X2. desk monitor on. Pulse ox on. NIBP on. Door closed. Noise minimized. Warm blanket given. 12:21 IV discontinued, intact, bleeding controlled, No redness/swelling at site. ld1 12:21 Arm band placed on right wrist. ld1 Administered Medications: 11:31 Drug: Famotidine IVP 20 mg IVP once; dilute with 10 mL 0.9% NaCl; give over 2 minutes ld1 Route: IVP; Site: right antecubital; 12:21 Follow up: Response: No adverse reaction ld1 11:31 Drug: GI Cocktail without - (Maalox PO 30 ml, Lidocaine Mucous Membrane 2 % 15 ld1 ml) PO once Route: PO; 12:21 Follow up: Response: No adverse reaction ld1 Medication: 11:27 VIS not applicable for this client. ld1 Outcome: 12:02 Discharge ordered by . rn 12:20 Discharged to home ambulatory, ld1 12:20 Condition: stable 12:20 Discharge instructions given to patient, Instructed on discharge instructions, follow up and referral plans. Demonstrated understanding of instructions, follow-up care, medications, Prescriptions given X 1, 12:21 Patient left the ED. ld1 Signatures: Dispatcher [employer] EDMS Elena Duran RN RN iw Nieto, Roman, MD MD rn Sims, Lauren, RN RN ld1 Josefina Baron 6 Rita Gardner ra3 Corrections: (The following items were deleted from the chart) 10:32 10:31 Chief complaint: Patient states: burning mid abd pain X 2-3 days [place]
--- NOTE | 2024-02-26 12:03 | EDPHYS ---
Physician Documentation [facility] Name: Manisha Go Age: 28 yrs Sex: Female : 1995 Arrival Date: 02/26/2024 Time: 10:20 Bed 17 Private MD: ED Physician Mychal Gil HPI: 02/25 10:47 This 28 yrs old Female presents to ER via Ambulatory with complaints of rn abdominal bloating. 10:47 The patient presents with Bloating and burning. Onset: The symptoms/episode rn began/occurred 1 month(s) ago. The symptoms do not radiate. Associated signs and symptoms: Pertinent positives: Acid reflux. The symptoms are described as burning. Modifying factors: The symptoms are alleviated by nothing, the symptoms are aggravated by Exercise and laying down. Severity of pain: At its worst the pain was mild in the emergency department the pain is unchanged. The patient has not experienced similar symptoms in the past. Patient reports at least 1 month of abdominal bloating sensation and burning sensation. Patient reports history of acid reflux and worse when exercising and/or laying down at night. Patient states he eats a lot of spicy food. No fever or chills. Denies abdominal pain. No blood in stool or dark stool. No hematemesis. Patient reports read about H. pylori testing and came to see if she could get tested. Tried Zantac, 1 dose and did not work so stopped trying. No weight loss. No history of stomach cancer and family. 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 - Infectious Disease History:: Denies. - Social history:: Smoking status: Patient denies any tobacco usage or history of. - Family history:: not pertinent. - Hospitalizations: : No recent hospitalization is reported. ROS: 10:47 Constitutional: Negative for fever, chills, and weight loss, Cardiovascular: Negative rn for chest pain, palpitations, and edema, Respiratory: Negative for shortness of breath, cough, wheezing, and pleuritic chest pain, Abdomen/GI: Positive for abdominal bloating and burning sensation Back: Negative for injury and pain, MS/Extremity: Negative for injury and deformity, Skin: Negative for injury, rash, and discoloration, Neuro: Negative for headache, weakness, numbness, tingling, and seizure, Exam: 10:47 Constitutional: This is a well developed, well nourished patient who is awake, alert, rn and in no acute distress. Cardiovascular: Regular rate and rhythm. No pulse deficits. Respiratory: No increased work of breathing, no retractions or nasal flaring. Abdomen/GI: Soft, non-tender, no rebound or guarding, negative [facility] Neuro: Awake and alert, GCS 15 Vital Signs: 10:31 BP 141 / 96; Pulse 80; Resp 16; Temp 98.1; Pulse Ox 100% ; Weight 95.71 kg; Height 5 iw ft. 4 in. ; 10:31 Body Mass Index 36.22 (95.71 kg, 162.56 cm) iw MDM: 10:22 Medical Screening Exam initiated rn 12:00 Differential diagnosis: cholecystitis, Cholelithiasis, gastritis, gastroesophageal rn reflux disease, non-specific abd pain, pancreatitis, Peptic Ulcer Disease. Data reviewed: vital signs, nurses notes, lab test result(s), radiologic studies, ultrasound, and as a result, I will discharge patient. Counseling: I had a detailed discussion with the patient and/or guardian regarding the historical points, exam findings, and any diagnostic results supporting the discharge/admit diagnosis, lab results, radiology results, the need for outpatient follow up, to return to the emergency department if symptoms worsen or persist or if there are any questions or concerns that arise at home. Response to treatment: the patient's symptoms have markedly improved after treatment, and as a result, I will discharge patient. Special discussion: I discussed with the patient/guardian in detail that at this point there is no indication for admission to the hospital. It is understood, however, that if the symptoms persist or worsen the patient needs to return immediately for re-evaluation. Based on the history and exam findings, there is no indication for further emergent testing or inpatient evaluation. I discussed with the patient/guardian the need to see the brine room laborer for further evaluation of the symptoms. ED course: No acute findings and workup today including blood work and ultrasound. Most likely GERD or acid related symptoms. Symptoms markedly improved after GI cocktail and Pepcid. Will discharge home with antacids and GI follow-up for H. pylori testing and further recommendations.. 02/25 10:42 Order name: CBC with Diff; Complete Time: 11:29 rn 02/25 10:42 Order name: CMP; Complete Time: 11: rn 02/25 10:42 Order name: Lipase; Complete Time: 11: rn 02/25 10:42 Order name: Test, Urine; Complete Time: 11: rn 02/25 10:42 Order name: Urinalysis w/ reflexes; Complete Time: 11: rn 02/25 10:42 Order name: US Abdomen Limited; Complete Time: 11:53 rn 02/25 10:42 Order name: IV Saline Lock; Complete Time: :53 rn 02/25 10:42 Order name: Labs collected and sent; Complete Time: 10:53 rn Administered Medications: 11:31 Drug: Famotidine IVP 20 mg IVP once; dilute with 10 mL 0.9% NaCl; give over 2 minutes ld1 Route: IVP; Site: right antecubital; 12:21 Follow up: Response: No adverse reaction ld1 11:31 Drug: GI Cocktail without - (Maalox PO 30 ml, Lidocaine Mucous Membrane 2 % 15 ld1 ml) PO once Route: PO; 12:21 Follow up: Response: No adverse reaction ld1 Disposition Summary: 02/26/24 12:02 Discharge Ordered Notes: Location: Home rn Problem: an ongoing problem rn Symptoms: have improved rn Condition: Stable rn Diagnosis - Gastro-esophageal reflux disease without esophagitis rn Followup: rn - With: Private Physician - When: As needed - Reason: Recheck today's complaints, Re-evaluation by your physician Discharge Instructions: - Discharge Summary Sheet rn - Gastroesophageal Reflux Disease, Adult rn - Indigestion rn Forms: - Medication Reconciliation Form rn - 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
[2024-02-27 16:46] VITALS: BP 141/96; TEMP 98.1; O2SAT 100
== END 2024-02-26 12:21 | disposition home or self-care (01) ==
LOC: ER 10:20
DX: K21.9 Gastro-esophageal reflux disease without esophagitis (principal)
CPT/HCPCS: 36415; 76705; 80053; 81001; 81025; 83690; 85025; 96374; 99285